=== PATIENT | male | born 1950 ===

== ENCOUNTER 2024-10-31 13:51 | Emergency (ER) | payer MEDICARE, OTHER ==
[2024-10-31] MEDS: EPINEPHrine 1:10,000 1 MG/10 ML Syringe IVPUSH PRN (13:55)
== END 2024-10-31 14:02 | disposition expired ==
LOC: FB.ED 13:51
DX: I46.9 Cardiac arrest, cause unspecified (principal)
CPT/HCPCS: 82947; 92950; 99285; 99285-25